=== PATIENT | male | born 2000 | race Caucasian/White ===

== ENCOUNTER → 2023-01-14 | Outpatient (CLI) | payer BC ==
--- NOTE | 2023-01-14 16:04 | XR ---
EXAMINATION TYPE: XR chest 2V DATE OF EXAM: 01/14/2023 COMPARISON: 03/23/2011 INDICATION: Asthma TECHNIQUE: Frontal and lateral views of the chest are obtained. FINDINGS: The heart size is normal. The pulmonary vasculature is normal. The lungs are clear. Some mild hyperinflation is present. IMPRESSION: 1. No acute pulmonary process.
== END | disposition home or self-care (01) ==
LOC: RADXRMAIN 15:07
PROVIDERS: ATTEND Family Medicine
DX: J45.909 Unspecified asthma, uncomplicated (principal)
CPT/HCPCS: 71046

== ENCOUNTER → 2023-02-15 | Outpatient (CLI) | payer BC ==
--- NOTE | 2023-02-15 12:37 | CT ---
EXAMINATION TYPE: CT brain wo con DATE OF EXAM: 02/15/2023 COMPARISON: 01/12/2013 HISTORY: GREEN, sinusitis CT DLP: 1563.1 mGycm. Automated Exposure Control for Dose Reduction was Utilized. TECHNIQUE: CT scan of the head is performed without contrast. FINDINGS: There is no acute intracranial hemorrhage, mass effect, or midline shift identified. The ventricles and sulci are within normal limits in size. The globes are intact and minimal changes of chronic sinusitis. Cerebellar tonsils are low-lying position. Stable asymmetry involving the frontal horn body of the lateral ventricle is unchanged. IMPRESSION: 1. No acute intracranial hemorrhage, mass effect, or midline shift is seen. 2. Low-lying cerebellar tonsils only partially included in field of view. Stable asymmetry of the lat eral ventricles. Recommend correlation with MRI to exclude Chiari formation. 3. Minimal changes of chronic sinusitis.
--- NOTE | 2023-02-15 12:44 | CT ---
EXAMINATION TYPE: CT sinus wo con DATE OF EXAM: 02/15/2023 COMPARISON: None HISTORY: GREEN, sinusitis CT DLP: 1563.1 mGycm. Automated Exposure Control for Dose Reduction was Utilized. TECHNIQUE: CT scan of the sinuses is performed without contrast, axial images are obtained, coronal r eformatted images are also reviewed. FINDINGS: The paranasal sinuses including the frontal, ethmoid, sphenoid, and maxillary sinuses bila terally are well-aerated with minimal soft tissue opacification of the ethmoid air cells. There is nasal septal deviation. The ostiomeatal complex is patent bilaterally on the coronal images. Visualized portion of mastoid air cells show no abnormal opacification. The globes are intact bilate rally. IMPRESSION: 1. Minimal chronic ethmoidal sinusitis and the ostiomeatal complex is patent bilaterally. 2. Nasal septal deviation.
== END | disposition home or self-care (01) ==
LOC: RADCTMAIN 12:08
PROVIDERS: ATTEND Family Medicine
DX: J32.2 Chronic ethmoidal sinusitis (principal); J34.2 Deviated nasal septum; G43.909 Migraine, unspecified, not intractable, without status migrainosus
CPT/HCPCS: 70450; 70486

== ENCOUNTER 2023-03-18 13:53 | Emergency (ER) | payer OTHER ==
--- NOTE | 2023-03-18 14:32 | ED ---
Skin/Abscess/FB HPI - General Chief complaint: Skin/Abscess/Foreign Body Stated complaint: rash Time Seen by Provider: 03/18/23 14:04 Source: patient, RN notes reviewed Mode of arrival: ambulatory Limitations: no limitations - History of Present Illness Initial comments: Patient presents with symptoms of recurrent contact dermatitis. 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 Rest of both arms, both legs, to a lesser similar areas on his torso. No shortness of breath. No airway problems. No throat swelling. No fever or chills. Patient states he just finished steroids a few days ago for a previous reaction. She states he believes he needs to get a different job because of his constant exposure. Patient complaining of intense itching. Has been using [id number] antihistamines. No known ALLERGIES. No headache, no fever or chills, no changes in vision or hearing, no sore throat or difficulty with speech, no neck pain, no chest pain or shortness of breath, no abdominal pain, no nausea or vomiting, no changes in urination or bowel movements, no numbness or tingling, no extremity pain Past medical, surgical, social, and family history reviewed. MD complaint: rash - Related Data Previous Rx's Medication Instructions Recorded predniSONE [Deltasone] 20 mg PO DIRECTED #30 tab 03/18/23 Allergies Allergy/AdvReac Type Severity Reaction Status Date / Time amoxicillin Allergy Rash/Hives Verified 03/18/23 14:00 Review of Systems ROS Statement: Those systems with pertinent positive or pertinent negative responses have been documented in the HPI. ROS Other: All systems not noted in ROS Statement are negative. Past Medical History Past Medical History: Thyroid Disorder History of Any Multi-Drug Resistant Organisms: None Reported Past Surgical History: No Surgical Hx Reported Past Psychological History: ADD/ADHD Smoking Status: Former smoker, Vaper Past Alcohol Use History: Occasional Past Drug Use History: Marijuana General Exam - General Exam Comments Initial Comments: She does not appear to be systemically ill or toxic. Vital signs stable, patient afebrile. However 94, cranial nerves II through XII grossly intact Limitations: no limitations General appearance: alert, in no apparent distress Head exam: Present: atraumatic, normocephalic, normal inspection Eye exam: Present: normal appearance, PERRL, EOMI. Absent: scleral icterus, conjunctival injection, periorbital swelling ENT exam: Present: normal exam, normal oropharynx, mucous membranes dry, mucous membranes moist, normal external ear exam Neck exam: Present: normal inspection, full ROM. Absent: tenderness, meningismus, lymphadenopathy Respiratory exam: Present: normal lung sounds bilaterally. Absent: respiratory distress, wheezes, rales, rhonchi, stridor, accessory muscle use Cardiovascular Exam: Present: regular rate, normal rhythm, normal heart sounds. Absent: systolic murmur, diastolic murmur, rubs, gallop, clicks GI/Abdominal exam: Present: soft, normal bowel sounds. Absent: distended, tenderness, guarding, rebound, rigid Extremities exam: Present: normal inspection, full ROM, normal capillary refill. Absent: tenderness, pedal edema, joint swelling, calf tenderness Back exam: Present: normal inspection Neurological exam: Present: alert, oriented X3, CN II-XII intact Psychiatric exam: Present: normal affect, normal mood Skin exam: Present: warm, dry, normal color, rash, erythema, other (Patient has an excoriated, scaly, erythematous rash involving upper and lower extremities and to a lesser scented torso. Consistent with contact dermatitis. Oss[place]. No pustules. No target lesions. No evidence of secondary infection.). Absent: cyanosis, diaphoretic, urticaria, vesicles, petechiae, pallor, mottled, abrasion Course Vital Signs 03/18/23 13:57 Temperature 98.6 F Pulse Rate 64 Respiratory 18 Rate Blood Pressure 129/78 O2 Sat by Pulse 100 Oximetry Medical Decision Making - Medical Decision Making Was pt. sent in by a medical professional or institution? @ -no Did you speak to anyone other than the patient for history? @ -Patient Did you review nursing and triage notes? @ -Agree Were old charts reviewed? @ -no Differential Diagnosis? @ -Differential diagnosis includes but not limited to: Contact dermatitis, irritant dermatitis,Does not appear to be consistent with dangerous rashes such as Rm-Jay syndrome, toxic epidermal necrolysis, rashes associated with systemic illness. Patient looks well otherwise. Does not appear to be consistent with infectious process. EKG interpreted by me (3pts min.)? @ -[none] X-rays interpreted by me (1pt min.)? @ -[none] CT interpreted by me (1pt min.)? @ -[none] U/S interpreted by me (1pt. min.)? @ -[none] What testing was considered but not performed? (CT, X-rays, U/S, labs)? Why? @ [CT, X-rays, U/S, labs? Why?] What meds were considered but not given? Why? @ -Intramuscular Solu-Medrol 125 mg was considered but not given since I'm going to start the patient on a high-dose prednisone taper. Did you discuss the management of the patient with other professionals? @ -no Did you reconcile home meds? @ -[none] Was smoking cessation discussed for >3mins.? @ -[none] Was critical care preformed (if so, how long)? @ -[none] Were there social determinants of health that impacted care today? How? (Homelessness, low income, unemployed, alcoholism, drug addiction, transportation, low edu. Level, literacy, decrease access to med. care, fdc, rehab)? @ -Likely employment related as he is a food safety manager Was there de-escalation of care discussed even if they declined? (Discuss DNR or withdrawal of care, Hospice)? @ -[Discuss DNR or withdrawal of care, Hospice?] What co-morbidities impacted this encounter? (DM, HTN, Smoking, COPD, CAD, Can cer, CVA, Hep., AIDS, mental health diagnosis, sleep apnea, morbid obesity)? @ -none Was patient admitted / discharged? @ -[hospital course] Undiagnosed new problem with uncertain prognosis? @ -Does not appear to be consistent with systemic illness. This is an exacerbation of a chronic and recurrent irritant dermatitis Drug Therapy requiring intensive monitoring for toxicity (Heparin, Nitro, Insulin, Cardizem)? @ -[none] Were any procedures done? @ -[none] Diagnosis/symptom? @ -Contact dermatitis, recurrent Acute, or Chronic, or Acute on Chronic? @ -Recurrent, acute Uncomplicated (without systemic symptoms) or Complicated (systemic symptoms)? @ -Uncomplicated Side effects of treatment? @ -[none] Exacerbation, Progression, or Severe Exacerbation] @ -Exacerbation Poses a threat to life or bodily function? @ -[no] Patient given a prednisone taper starting at 80 mg daily. Discussed treatment with antihistamines. Discussed follow-up with the primary care physician and possible ALLERGY testing as well as possible job change. Patient was told to return to the ER for any signs or symptoms worsen. Told to return immediately if any other problems arise. All questions answered. Treatment plan discussed. Patient in agreement Every effort has been made to ensure accuracy of this dictation. However, due to the limitations of electronic medical records and dictation devices, errors in charting still occur. Disposition Clinical Impression: Contact dermatitis Disposition: HOME SELF-CARE Condition: Good Instructions (If sedation given, give patient instructions): Contact Dermatitis (ED) Additional Instructions: Take the prednisone taper as directed. Continue [id number] antihistamines, Zyrtec 10 mg once a day, you could take 25 mg of Benadryl about one hour before bedtime as well. Topical calamine lotion or Aveeno baths may be beneficial as well. Cool compresses. Follow-up with your regular physician as directed. Return to the ER immediately if any symptoms worsen, new symptoms arise, or any other problems develop. Make sure urine overdosing on antihistamines. Prescriptions: predniSONE [Deltasone] 20 mg PO DIRECTED #30 tab Is patient prescribed a controlled substance at d/c from ED?: No When asked, does pt state using other controlled substances?: No If prescribed controlled substance>3 days was MAPS reviewed?: No Referrals: Khari Rooney DO [Primary Care Provider] - 1-2 days Time of Disposition: 14:31
[2023-03-18 14:51] VITALS: BP 117/68; PULSE 51; RESP 16; TEMP 97.9
== END 2023-03-18 14:53 | disposition home or self-care (01) ==
LOC: EC 13:53
DX: L25.9 Unspecified contact dermatitis, unspecified cause (principal); F12.90 Cannabis use, unspecified, uncomplicated; F17.290 Nicotine dependence, other tobacco product, uncomplicated; Z88.0 Allergy status to penicillin
CPT/HCPCS: 99282

== ENCOUNTER 2023-11-23 18:31 | Emergency (ER) | payer OTHER ==
--- NOTE | 2023-11-23 19:22 | ED ---
Abdominal Pain HPI - General Chief Complaint: Abdominal Pain Stated Complaint: L flank pain Time Seen by Provider: 11/23/23 18:41 Source: patient Mode of arrival: ambulatory Limitations: no limitations - History of Present Illness Initial Comments: 23-year-old male presenting to the ED with complaints of abdominal pain. Patient reports over the past few weeks to month and a half has had tightness to his left lateral abdomen. 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 Also reports that he is getting back into the gym and has been taking 5 to 10 g of creatine. Due to history of drug abuse and recent creatine intake concerned that he might have a kidney infection as he also reports that he has been more fatigued than usual as well denies dysuria, urgency, frequency, hematuria. Denies charge. No concern for STDs. No fever or chills. No chest pain or shortness of breath. No other complaints at this time. - Related Data Previous Rx's Medication Instructions Recorded predniSONE [Deltasone] 20 mg PO DIRECTED #30 tab 03/18/23 Allergies Allergy/AdvReac Type Severity Reaction Status Date / Time amoxicillin Allergy Rash/Hives Verified 11/23/23 18:37 Review of Systems ROS Statement: Those systems with pertinent positive or pertinent negative responses have been documented in the HPI. ROS Other: All systems not noted in ROS Statement are negative. Past Medical History Past Medical History: Thyroid Disorder History of Any Multi-Drug Resistant Organisms: None Reported Past Surgical History: No Surgical Hx Reported Past Psychological History: ADD/ADHD Smoking Status: Former smoker, Vaper Past Alcohol Use History: Occasional Past Drug Use History: Marijuana General Exam Limitations: no limitations General appearance: alert, in no apparent distress Eye exam: Present: normal appearance Neck exam: Present: normal inspection Respiratory exam: Present: normal lung sounds bilaterally Cardiovascular Exam: Present: regular rate, normal rhythm GI/Abdominal exam: Present: soft, other (No CVA tenderness to percussion bilaterally.). Absent: distended, tenderness, guarding, rebound, rigid Neurological exam: Present: alert, oriented X3 Skin exam: Present: warm, dry Course Vital Signs 11/23/23 18:36 Temperature 98.7 F Pulse Rate 78 Respiratory 20 Rate Blood Pressure 147/101 O2 Sat by Pulse 100 Oximetry Medical Decision Making - Medical Decision Making Was pt. sent in by a medical professional or institution (, PA, [employer], urgent care, hospital, or senior care...) When possible be specific @ -No Did you speak to anyone other than the patient for history (EMS, parent, family, police, friend...)? What history was obtained from this source @ -No Did you review nursing and triage notes (agree or disagree)? Why? @ -I reviewed and agree with nursing and triage notes Were old charts reviewed (outside hosp., previous admission, EMS record, old EKG, old radiological studies, urgent care reports/EKG's, senior care records)? Report findings @ -No old charts were reviewed Differential Diagnosis (chest pain, altered mental status, abdominal pain women, abdominal pain men, vaginal bleeding, weakness, fever, dyspnea, syncope, hea dache, dizziness, GI bleed, back pain, seizure, CVA, palpatations, mental health, musculoskeletal)? @ -Differential Abdominal Pain Men: Appendicitis, cholecystitis, diverticulosis, ischemic bowel, pancreatitis, hepatitis, UTI, gastroenteritis, AAA, incarcerated hernia, bowel obstruction, constipation, inflammatory bowel, hepatitis, peptic ulcer disease, splenic infarction, perforated viscus, testicular torsion, this is not meant to be an all-inclusive list EKG interpreted by me (3pts min.). @ -None X-rays interpreted by me (1pt min.). @ -None done CT interpreted by me (1pt min.). @ -CT abdomen pelvis interpreted me which revealed no evidence of acute finding. U/S interpreted by me (1pt. min.). @ -None done What testing was considered but not performed or refused? (CT, X-rays, U/S, labs)? Why? @ -None What meds were considered but not given or refused? Why? @ -Patient was offered analgesics however at this time patient reports that he would not like to have any medications. Did you discuss the management of the patient with other professionals (professionals i.e. , PA, [employer], lab, RT, psych nurse, dialysis social worker, cable hooker, teacher, correction officer reformatory, geriatric case manager)? Give summary @ -No Was smoking cessation discussed for >3mins.? @ -No Was critical care preformed (if so, how long)? @ -No Were there social determinants of health that impacted care today? How? (Homelessness, low income, unemployed, alcoholism, drug addiction, transportation, low edu. Level, literacy, decrease access to med. care, group home, rehab)? @ -No Was there de-escalation of care discussed even if they declined (Discuss DNR or withdrawal of care, Hospice)? DNR status @ -No What co-morbidities impacted this encounter? (DM, HTN, Smoking, COPD, CAD, Cancer, CVA, ARF, Chemo, Hep., AIDS, mental health diagnosis, sleep apnea, morb id obesity)? @ -None Was patient admitted / discharged? Hospital course, mention meds given and rou te, prescriptions, significant lab abnormalities, going to OR and other pertinent info. @ -Discharge 23-year-old male presenting to the ED with concerns of possible kidney damage or kidney infection. Reports history of meth abuse in the past and reports that he has recently started taking creatine and effort to become stronger/more muscular. Reports over the past week to month and a half has had tightness in his left lateral abdomen. Laboratory studies reviewed. Labs including CBC, CMP, UA unremarkable. CT abdomen pelvis revealed no evidence of acute finding. Symptoms likely musculoskeletal in nature. Offered analgesics here in the ED however patient declined. Offered prescription for analgesics at home however patient also declined these. Discharged home in stable condition and advised follow-up with his PCP. Discussed return precautions with patient who verbali zed agreement. Undiagnosed new problem with uncertain prognosis? @ -No Drug Therapy requiring intensive monitoring for toxicity (Heparin, Nitro, Insulin, Cardizem)? @ -No Were any procedures done? @ -No Diagnosis/symptom? @ -Left-sided abdominal pain Acute, or Chronic, or Acute on Chronic? @ -Acute Uncomplicated (without systemic symptoms) or Complicated (systemic symptoms)? @ -Uncomplicated Side effects of treatment? @ -No Exacerbation, Progression, or Severe Exacerbation? @ -No Poses a threat to life or bodily function? How? (Chest pain, [place], [place], pneumonia, PE, COPD, DKA, ARF, appy, cholecystitis, CVA, Diverticulitis, Homicidal, Suicidal, threat to staff... and all critical care pts) @ -No - Lab Data Result diagrams: 11/23/23 19:24 11/23/23 19:24 Lab Results 11/23/23 11/23/23 11/23/23 Range/Units 19:24 19:24 19:37 WBC 6.5 (3.8-10.6) k/uL RBC 4.81 (4.30-5.90) m/uL Hgb 14.9 (13.0-17.5) gm/dL Hct 44.2 (39.0-53.0) % MCV 92.1 (80.0-100.0) fL MCH 31.0 (25.0-35.0) pg MCHC 33.6 (31.0-37.0) g/dL RDW 12.0 (11.5-15.5) % Plt Count 212 (150-450) k/uL MPV 7.2 Neutrophils % 49 % Lymphocytes % 37 % Monocytes % 8 % Eosinophils % 4 % Basophils % 1 % Neutrophils # 3.2 (1.3-7.7) k/uL Lymphocytes # 2.4 (1.0-4.8) k/uL Monocytes # 0.5 (0-1.0) k/uL Eosinophils # 0.3 (0-0.7) k/uL Basophils # 0.1 (0-0.2) k/uL Sodium 138 (137-145) mmol/L Potassium 4.0 (3.5-5.1) mmol/L Chloride 107 (98-107) mmol/L Carbon Dioxide 25 (22-30) mmol/L Anion Gap 6 mmol/L BUN 22 H (9-20) mg/dL Creatinine 1.00 (0.66-1.25) mg/dL Est GFR (CKD-EPI)AfAm >90 (>60 ml/min/1.73 sqM) Est GFR (CKD-EPI)NonAf >90 (>60 ml/min/1.73 sqM) Glucose 96 (74-99) mg/dL Calcium 9.7 (8.4-10.2) mg/dL Total Bilirubin 0.8 (0.2-1.3) mg/dL AST 58 (17-59) U/L ALT 47 (4-49) U/L Alkaline Phosphatase 59 (38-126) U/L Total Protein 7.4 (6.3-8.2) g/dL Albumin 4.5 (3.5-5.0) g/dL Amylase 78 (30-110) U/L Lipase 85 (23-300) U/L Urine Color Colorless Urine Appearance Clear (Clear) Urine pH 6.5 (5.0-8.0) Ur Specific [place] 1.002 (1.001-1.035) Urine Protein Negative (Negative) Urine Glucose (UA) Negative (Negative) Urine Ketones Negative (Negative) Urine Blood Negative (Negative) Urine Nitrite Negative (Negative) Urine Bilirubin Negative (Negative) Urine Urobilinogen <2.0 (<2.0) mg/dL Ur Leukocyte Esterase Negative (Negative) Disposition Clinical Impression: Abdominal pain Disposition: HOME SELF-CARE Condition: Good Instructions (If sedation given, give patient instructions): Abdominal Pain (ED) Additional Instructions: Please return to the Emergency Department if symptoms worsen or any other concerns. Please follow-up with your primary care provider. Is patient prescribed a controlled substance at d/c from ED?: No Referrals: Rm Chaudhari [Primary Care Provider] - 1-2 days Time of Disposition: 21:45
[2023-11-23 19:31] LABS: Basophils # (A) 0.1 k/uL (0-0.2); Basophils % (A) 1 %; Eosinophils # (A) 0.3 k/uL (0-0.7); Eosinophils % (A) 4 %; HCT 44.2 % (39.0-53.0); HGB 14.9 gm/dL (13.0-17.5); Lymphocytes # (A) 2.4 k/uL (1.0-4.8); Lymphocytes % (A) 37 %; MCHC 33.6 g/dL (31.0-37.0); MCV 92.1 fL (80.0-100.0); Mean Platelet Volume 7.2; Monocytes # (A) 0.5 k/uL (0-1.0); Monocytes % (A) 8 %; Neutrophils # (A) 3.2 k/uL (1.3-7.7); Neutrophils % (A) 49 %; Platelet Count 212 k/uL (150-450); RBC 4.81 m/uL (4.30-5.90); WBC 6.5 k/uL (3.8-10.6)
[2023-11-23 19:57] LABS: Appearance,Urine Clear (Clear); Bilirubin,Urine Negative (Negative); Blood,Urine Negative (Negative); Color,Urine Colorless; Glucose,Urine (UA) Negative (Negative); Ketones,Urine Negative (Negative); Leukocyte Esterase,Urine Negative (Negative); Nitrite,Urine Negative (Negative); PH, Urine 6.5 (5.0-8.0); Protein,Urine Negative (Negative); Specific Gravity,Urine 1.002 (1.001-1.035); Urobilinogen,Urine <2.0 mg/dL (<2.0)
[2023-11-23 20:08] LABS: ALT 47 U/L (4-49); AST 58 U/L (17-59); African American GFR (CKD) >90 (>60 ml/min/1.73 sqM); Albumin 4.5 g/dL (3.5-5.0); Alkaline Phosphatase 59 U/L (38-126); Amylase 78 U/L (30-110); Anion Gap 6 mmol/L; Blood Urea Nitrogen 22 mg/dL (9-20); Calcium 9.7 mg/dL (8.4-10.2); Carbon Dioxide 25 mmol/L (22-30); Chloride 107 mmol/L (98-107); Glucose 96 mg/dL (74-99); Lipase 85 U/L (23-300); Non-African American GFR(CKD) >90 (>60 ml/min/1.73 sqM); Sodium 138 mmol/L (137-145); Total Bilirubin 0.8 mg/dL (0.2-1.3); Total Protein 7.4 g/dL (6.3-8.2)
[2023-11-23] MEDS: SODIUM CHLORIDE 0.9% 1,000 ML IV STA (20:13)
--- NOTE | 2023-11-23 20:54 | CT ---
EXAMINATION TYPE: CT abdomen pelvis wo con CT DLP: 363.8 mGycm, Automated exposure control for dose reduction was used. DATE OF EXAM: 11/23/2023 8:11 PM COMPARISON: None. CLINICAL INDICATION:Male, 23 years old with history of l flank pain; left flank pain TECHNIQUE: Axial CT of the abdomen and pelvis. Sagittal and coronal reformats were created on a [employer] workstation. Contrast used: mL of , (none if empty) Oral contrast used: without Oral Contrast (none if empty) FINDINGS: Exam is limited without contrast. Exam also limited due to lack of intraperitoneal fat providing intr insic contrast. LOWER CHEST: Unremarkable ABDOMEN LIVER: Size is prominent, 19.6 cm. Otherwise unremarkable. GALLBLADDER AND BILE DUCTS: Unremarkable gallbladder. No biliary ductal dilatation. PANCREAS: Unremarkable. SPLEEN: Unremarkable. ADRENAL GLANDS: Unremarkable. KIDNEYS AND URETERS: Kidney show no evidence of calculus or contour deformity. No hydroureteronephros is or ureteral stones. PELVIS BLADDER: Mildly distended. No evidence of calculi. REPRODUCTIVE: Unremarkable. ABDOMEN & PELVIS STOMACH AND BOWEL: The stomach is mildly distended with heterogeneous contents, likely food stuffs. T here is no significant small bowel distention seen to suggest obstruction. The appendix is not well s een, likely candidate appendix appears within normal limits and no right lower quadrant inflammatory process is seen. Moderate stool throughout the colon without acute abnormality seen. PERITONEUM/RETROPERITONEUM: No evidence of pneumoperitoneum or free fluid. VASCULATURE: Aorta and major branches are grossly unremarkable. No AAA. LYMPH NODES: No enlarged nodes by CT size criteria. SOFT TISSUE/ABDOMINAL WALL: Unremarkable for acute process. MUSCULOSKELETAL: No acute osseous abnormalities. No significant degenerative changes. Small scleroti c densities in the proximal femurs and right pubic bone close to the SI joint, likely bone islands. N o evidence of destructive lesion. IMPRESSION: No evidence of urinary tract calculi or hydronephrosis.
[2023-11-23 22:22] VITALS: BP 119/76; PULSE 87; RESP 16; TEMP 98.9
== END 2023-11-23 22:03 | disposition home or self-care (01) ==
LOC: EC 18:31
DX: R10.9 Unspecified abdominal pain (principal); F17.290 Nicotine dependence, other tobacco product, uncomplicated; Z88.0 Allergy status to penicillin
CPT/HCPCS: 36415; 74176; 80053; 81003; 82150; 83690; 85025; 96360; 99284

== ENCOUNTER 2023-12-28 21:03 | Emergency (ER) | payer OTHER ==
[2023-12-28 21:26] VITALS: TEMP 97.9
[2023-12-29 02:14] VITALS: BP 106/60; RESP 16
--- NOTE | 2023-12-29 03:22 | ED ---
ENT HPI - General Chief complaint: ENT Stated complaint: Swelling in throat Time Seen by Provider: 12/29/23 01:04 Source: patient Mode of arrival: ambulatory Limitations: no limitations - History of Present Illness Initial comments: 23-year-old male presenting to the ED with complaint of dysphagia. Patient reports for the past few months has had problems with difficulty swallowing however tonight had an episode where he seemed to have food stuck in his throat and had difficulty breathing. At this time, patient reports that this is resolved. However states he has been following with his PCP for this and reports that he is presenting to the ED as he is "sick of it" and would like to get this testing performed now. Currently denies difficulty swallowing or difficulty breathing. No fever or chills. No other complaints at this time. - Related Data Previous Rx's Medication Instructions Recorded predniSONE [Deltasone] 20 mg PO DIRECTED #30 tab 03/18/23 methylPREDNISolone Dose Pack 4 mg PO DIRECTED #1 packet 12/29/23 [Medrol Dose Pack] Allergies Allergy/AdvReac Type Severity Reaction Status Date / Time amoxicillin Allergy Rash/Hives Verified 11/23/23 18:37 Review of Systems ROS Statement: Those systems with pertinent positive or pertinent negative responses have been documented in the HPI. ROS Other: All systems not noted in ROS Statement are negative. Past Medical History Past Medical History: Thyroid Disorder History of Any Multi-Drug Resistant Organisms: None Reported Past Surgical History: No Surgical Hx Reported Past Psychological History: ADD/ADHD Smoking Status: Former smoker, Vaper Past Alcohol Use History: Occasional Past Drug Use History: Marijuana General Exam Limitations: no limitations General appearance: alert, in no apparent distress ENT exam: Present: other (Tolerating secretions, no stridor) Neck exam: Present: normal inspection Respiratory exam: Present: normal lung sounds bilaterally Cardiovascular Exam: Present: regular rate, normal rhythm GI/Abdominal exam: Present: soft, normal bowel sounds. Absent: distended, tenderness, guarding, rebound, rigid Neurological exam: Present: alert, oriented X3 Skin exam: Present: warm, dry Course Vital Signs 12/28/23 12/29/23 21:04 01:40 Temperature 97.9 F Pulse Rate 86 68 Respiratory 18 16 Rate Blood Pressure 127/79 106/60 O2 Sat by Pulse 100 97 Oximetry Medical Decision Making - Medical Decision Making Was pt. sent in by a medical professional or institution ([facility], [employer], urgent care, hospital, or senior living...) When possible be specific @ -No Did you speak to anyone other than the patient for history (EMS, parent, family, police, friend...)? What history was obtained from this source @ -No Did you review nursing and triage notes (agree or disagree)? Why? @ -I reviewed and agree with nursing and triage notes Were old charts reviewed (outside hosp., previous admission, EMS record, old EKG, old radiological studies, urgent care reports/EKG's, senior living records)? Report findings @ -No old charts were reviewed Differential Diagnosis (chest pain, altered mental status, abdominal pain women, abdominal pain men, vaginal bleeding, weakness, fever, dyspnea, syncope, headache, dizziness, GI bleed, back pain, seizure, CVA, palpatations, mental health, musculoskeletal)? @ -Differential Dyspnea: Coronary syndrome, arrhythmia, tamponade, asthma, COPD, pulmonary embolism, pneumonia, pneumothorax, pulmonary effusion, anaphylaxis, diabetic ketoacidosis, flailed chest, pulmonary contusion, diaphragmatic rupture, anemia, neuromuscular, this is not meant to be an all-inclusive list. EKG interpreted by me (3pts min.). @ -None X-rays interpreted by me (1pt min.). @ -None done CT interpreted by me (1pt min.). @ -None done U/S interpreted by me (1pt. min.). @ -None done What testing was considered but not performed or refused? (CT, X-rays, U/S, labs)? Why? @ -None What meds were considered but not given or refused? Why? @ -None Did you discuss the management of the patient with other professionals (professionals i.e. [facility], [employer], lab, RT, psych nurse, psychosocial rehabilitation counselor, dope worker, teacher, supply officer, case reviewer)? Give summary @ -No Was smoking cessation discussed for >3mins.? @ -No Was critical care preformed (if so, how long)? @ -No Were there social determinants of health that impacted care today? How? (Homelessness, low income, unemployed, alcoholism, drug addiction, transpo rtation, low edu. Level, literacy, decrease access to med. care, longterm, rehab)? @ -No Was there de-escalation of care discussed even if they declined (Discuss DNR or withdrawal of care, Hospice)? DNR status @ -No What co-morbidities impacted this encounter? (DM, HTN, Smoking, COPD, CAD, Cancer, CVA, ARF, Chemo, Hep., AIDS, mental health diagnosis, sleep apnea, morbid obesity)? @ -None Was patient admitted / discharged? Hospital course, mention meds given and route, prescriptions, significant lab abnormalities, going to OR and other pertinent info. @ -Discharge 23-year-old male presented to the ED with complaints of dysphagia and an episode of difficulty breathing tonight which at this time is now resolved. On examination no significant oropharyngeal swelling. Tolerating secretions. No stridor. Vital signs stable afebrile with no evidence of hypoxia. I had the patient drink water and he successfully tolerated this. Advised patient to follow-up with his primary care provider for testing which she has ordered. Also provided patient referral to see gastroenterology. Discharged home in stable condition. Patient requesting some steroids. Provided Medrol Dosepak for him. Discharged home in stable condition. Discussed return precautions with patient and family who verbalized agreement. Undiagnosed new problem with uncertain prognosis? @ -No Drug Therapy requiring intensive monitoring for toxicity (Heparin, Nitro, Insulin, Cardizem)? @ -No Were any procedures done? @ -No Diagnosis/symptom? @ -Dysphagia Acute, or Chronic, or Acute on Chronic? @ -Acute on chronic Uncomplicated (without systemic symptoms) or Complicated (systemic symptoms)? @ -Uncomplicated Side effects of treatment? @ -No Exacerbation, Progression, or Severe Exacerbation? @ -No Poses a threat to life or bodily function? How? (Chest pain, [place], [place], pneumonia, PE, COPD, DKA, ARF, appy, cholecystitis, CVA, Diverticulitis, Homicidal, Suicidal, threat to staff... and all critical care pts) @ -Unlikely at this time Disposition Clinical Impression: Dysphagia Disposition: HOME SELF-CARE Condition: Good Additional Instructions: Please return to the Emergency Department if symptoms worsen or any other concerns. Please follow-up with your PCP and gastroenterology. Prescriptions: methylPREDNISolone Dose Pack [Medrol Dose Pack] 4 mg PO DIRECTED #1 packet Is patient prescribed a controlled substance at d/c from ED?: No Referrals: Rm Chaudhari [Primary Care Provider] - 1-2 days Tonya Arndt MD [STAFF PHYSICIAN] - 1-2 days Time of Disposition: 03:25
[2023-12-29 04:00] VITALS: PULSE 67
== END 2023-12-29 03:32 | disposition home or self-care (01) ==
LOC: EC 21:03
DX: R13.10 Dysphagia, unspecified (principal); F17.290 Nicotine dependence, other tobacco product, uncomplicated; F12.90 Cannabis use, unspecified, uncomplicated; Z88.0 Allergy status to penicillin
CPT/HCPCS: 99283

== ENCOUNTER → 2024-08-08 | Outpatient (CLI) | payer OTHER ==
[2024-08-08 23:13] LABS: ALT 33 U/L (10-49); AST 29 U/L (14-35); Chol/HDL Ratio 2.84 Ratio; VLDL Calculation 14.08 mg/dL (5.00-40.00)
[2024-08-10 02:30] LABS: Apolipoprotein A1 202 mg/dL (110 - 205)
== END | disposition home or self-care (01) ==
LOC: LABWHC1 11:39
PROVIDERS: ATTEND Internal Medicine
DX: E78.2 Mixed hyperlipidemia (principal)
CPT/HCPCS: 36415; 80061; 82172; 83695; 84450; 84460